=== PATIENT | female | born 1975 | race Caucasian/White ===

== ENCOUNTER 2019-05-29 19:31 | Emergency (ER) | payer OTHER ==
[~2019-05-29] VITALS: Ht 167.6 cm; Wt 91.6 kg
[2019-05-29 19:36] VITALS: Ht 167.6 cm; Wt 91.6 kg
[2019-05-29] MEDS ORDERED: FAMOTIDINE 20 MG TAB PO STA (20:43)
[2019-05-29] MEDS ORDERED: AL HYDROX/MG HYDROX/SIMETH 30 ML CUP PO ONE (21:00)
[2019-05-29 22:49] VITALS: BP 115/98; PULSE 84; RESP 18
== END 2019-05-29 22:51 | disposition home or self-care (01) ==
LOC: E/R 19:31
DX: R10.13 Epigastric pain (principal)
CPT/HCPCS: 36415; 71045; 76705; 80053; 81003; 81025; 83690; 85025; Z7502; Z7610